=== PATIENT | male | born 1985 | race American Indian/Alaskan Native ===

== ENCOUNTER 2020-01-04 17:28 | Emergency (ER) | payer SELFPAY | END 2020-01-04 19:10 | disposition left against medical advice (07) | LOC: ED 17:28 | DX: R11.10 Vomiting, unspecified (principal); Z53.21 Procedure and treatment not carried out due to patient leaving prior to being seen by health care provider ==

== ENCOUNTER 2020-01-04 22:14 | Emergency (ER) | payer SELFPAY ==
[2020-01-04 23:57] VITALS: BP 121/80
--- NOTE | 2020-01-05 02:08 | Emergency Department Report ---
ED N/V/D HPI - General Chief complaint: Nausea/Vomiting/Diarrhea Stated complaint: OVERHEATED/VOMIT AT WORK, NEED MD NOTE TO RETURN Source: patient Mode of arrival: Ambulatory Limitations: No Limitations - History of Present Illness Initial comments: Patient is a 34-year-old -[place] male with no past medical history presents to the ED for evaluation after he developed mild lightheadedness and nausea and vomiting over 12 hours ago while at work. Patient states that he only had one episode of nausea and vomiting and was there after sent home from work and advised to come to the ED for evaluation. Patient states that he has not had any nausea or vomiting since that incident occurred and that he has since been eating with no difficulty. 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 Patient denies abdominal pain, fever, chills, cough, sore throat, nasal and sinus congestion, chest pain, shortness of breath, diarrhea, dysuria, fall, headache, syncope or seizures. MD complaint: nausea, vomiting -: Sudden, hour(s) (12) Description of Vomiting: food contents, watery Associated Abdominal Pain: No Location: diffuse Radiation: none Severity: mild Pain Scale: 0 Quality: dull Consistency: intermittent Improves with: none Worsens with: none Associated Symptoms: denies other symptoms, nausea/vomiting. denies: myalgias, chest pain, cough, diaphoresis, fever/chills, headaches, loss of appetite, malaise, rash, dysuria, shortness of breath, syncope, weakness, other - Related Data Previous Rx's Medication Instructions Recorded Last Taken Type Ondansetron [Zofran Odt] 4 mg PO Q6HR PRN #15 tab.rapdis 01/05/20 Unknown Rx Allergies Allergy/AdvReac Type Severity Reaction Status Date / Time tomato [Tomato] Allergy Vomiting Verified 06/02/13 00:03 ED Review of Systems ROS: Stated complaint: OVERHEATED/VOMIT AT WORK, NEED MD NOTE TO RETURN Other details as noted in HPI Constitutional: denies: chills, fever Eyes: denies: eye pain, eye discharge, vision change ENT: denies: ear pain, throat pain Respiratory: denies: cough, shortness of breath, wheezing Cardiovascular: denies: chest pain, palpitations Endocrine: no symptoms reported Gastrointestinal: nausea, vomiting. denies: abdominal pain, diarrhea Genitourinary: denies: urgency, dysuria Musculoskeletal: denies: back pain, joint swelling, arthralgia Skin: denies: rash, lesions Neurological: denies: headache, weakness, paresthesias Psychiatric: denies: anxiety, depression Hematological/Lymphatic: denies: easy bleeding, easy bruising ED Past Medical Hx - Past Medical History Previous Medical History?: No Hx Asthma: No - Surgical History Past Surgical History?: Yes Additional Surgical History: pins to l) ankle - Social History Smoking Status: Current Every Day Smoker Substance Use Type: None - Medications Home Medications: Home Medications Medication Instructions Recorded Confirmed Last Taken Type Ondansetron [Zofran Odt] 4 mg PO Q6HR PRN #15 tab.rapdis 01/05/20 Unknown Rx ED Physical Exam - General Limitations: No Limitations General appearance: alert, in no apparent distress - Head Head exam: Present: atraumatic, normocephalic, normal inspection - Eye Eye exam: Present: normal appearance, PERRL, EOMI Pupils: Present: normal accommodation - ENT ENT exam: Present: normal exam, normal orophraynx, mucous membranes moist, TM's normal bilaterally, normal external ear exam - Neck Neck exam: Present: normal inspection, full ROM - Respiratory Respiratory exam: Present: normal lung sounds bilaterally. Absent: respiratory distress, wheezes, rales, rhonchi, chest wall tenderness, accessory muscle use, prolonged expiratory - Cardiovascular Cardiovascular Exam: Present: regular rate, normal rhythm, normal heart sounds. Absent: systolic murmur, diastolic murmur, rubs, gallop - GI/Abdominal GI/Abdominal exam: Present: soft, normal bowel sounds. Absent: distended, tenderness, guarding, rebound, hyperactive bowel sounds, hypoactive bowel sounds, organomegaly - Extremities Exam Extremities exam: Present: normal inspection, full ROM, normal capillary refill - Back Exam Back exam: Present: normal inspection, full ROM. Absent: tenderness, CVA tenderness (R), CVA tenderness (L), muscle spasm, paraspinal tenderness, rash noted - Neurological Exam Neurological exam: Present: alert, oriented X3, CN II-XII intact, normal gait, reflexes normal - Psychiatric Psychiatric exam: Present: normal affect, normal mood - Skin Skin exam: Present: warm, dry, intact, normal color. Absent: rash ED Course Vital Signs 01/04/20 22:36 Temperature 98.7 F Pulse Rate 85 Respiratory 18 Rate Blood Pressure 121/80 O2 Sat by Pulse 98 Oximetry ED Medical Decision Making - Medical Decision Making This is a 34-year-old -[place] male with no past medical history presents to the ED for evaluation after he developed mild lightheadedness and nausea and vomiting over 12 hours ago while at work. Patient states that he o nly had one episode of nausea and vomiting and was there after sent home from work and advised to come to the ED for evaluation. Patient states that he has not had any nausea or vomiting since that incident occurred and that he has since been eating with no difficulty. 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 In the ED, patient is alert and oriented x3 and is not in distress with normal vital signs. Patient has not had any nausea or vomiting in over 12 hours. Patient is hemodynamically stable and has no symptoms or any signs of dehydration. Patient was discharged home with a prescription of antiemetics and was advised to follow-up with his primary care physician in 3 to 5 days for reevaluation or return to the ED immediately if symptoms get worse. - Differential Diagnosis Viral gastroenteritis, GERD, dehydration, dizziness, lightheadedness Critical care attestation.: If time is entered above; I have spent that time in minutes in the direct care of this critically ill patient, excluding procedure time. ED Disposition Clinical Impression: Nausea and vomiting in adult Disposition: DC-01 TO HOME OR SELFCARE Is pt being admited?: No Does the pt Need Aspirin: No Condition: Stable Instructions: Acute Nausea and Vomiting (ED) Additional Instructions: Take medication as needed for nausea, drink plenty of fluids and follow-up with your primary care physician as needed. Return to the ED immediately if symptoms get worse. Prescriptions: Ondansetron [Zofran Odt] 4 mg PO Q6HR PRN #15 tab.rapdis PRN Reason: Nausea Referrals: [facility] [Provider Group] - 3-5 Days Forms: Work/School Release Form(ED) Time of Disposition: 02:05 Print Language: YORUBA
== END 2020-01-05 02:15 | disposition home or self-care (01) ==
LOC: ED 22:14
DX: R11.2 Nausea with vomiting, unspecified (principal); F17.200 Nicotine dependence, unspecified, uncomplicated; Z79.899 Other long term (current) drug therapy; Z91.018 Allergy to other foods; Z98.890 Other specified postprocedural states
CPT/HCPCS: 99282